=== PATIENT | female | born 1950 | race Caucasian/White ===

== ENCOUNTER 2018-04-17 16:25 | Emergency (ER) | payer MEDICARE, OTHER ==
[~2018-04-17] VITALS: Ht 175.3 cm; Wt 76.2 kg
[2018-04-17 16:40] VITALS: BP 150/95
--- NOTE | 2018-04-17 17:12 | PHYS DOC ---
Past History Past Medical History: Asthma, Hypertension, Other Past Surgical History: Appendectomy, Other Alcohol Use: None Drug Use: None Adult General Chief Complaint Chief Complaint: LACERATION/AVULSION HPI HPI Patient is a 68 year old right-handed female who presents with obtaining of laceration of left index finger at 9 AM with continuing bleeding. Patient state she went to a medical office and was told that she had exposed tendon and needs to come to ER. Patient denies focal neuro deficit and change of movement of her fingers. Patient is not up-to-date with tetanus immunization. Review of Systems Review of Systems Constitutional: Denies fever or chills [] Eyes: Denies change in visual acuity, redness, or eye pain [] HENT: Denies nasal congestion or sore throat [] Respiratory: Denies cough or shortness of breath [] Cardiovascular: No additional information not addressed in HPI [] GI: Denies abdominal pain, nausea, vomiting, bloody stools or diarrhea [] : Denies dysuria or hematuria [] Musculoskeletal: Denies back pain or joint pain [] Integument: Denies rash or skin lesions [] Neurologic: Denies headache, focal weakness or sensory changes [] Endocrine: Denies polyuria or polydipsia [] All other systems were reviewed and found to be within normal limits, except as documented in this note. Allergies Allergies Allergies Coded Allergies Type Severity Reaction Last Updated Verified Penicillins Allergy Intermediate 04/17/18 Yes Sulfa (Sulfonamide Antibiotics) Allergy Intermediate 04/17/18 Yes azithromycin Allergy Intermediate 04/17/18 Yes cephalexin Allergy Intermediate 04/17/18 Yes Physical Exam Physical Exam Constitutional: Well developed, well nourished, mild distress, non-toxic appearance. [] HENT: Normocephalic, atraumatic. Eyes: PERRLA, EOMI, conjunctiva normal, no discharge. [] Neck: Normal range of motion, no tenderness, supple, no stridor. [] Cardiovascular:Heart rate regular rhythm, no murmur [] Lungs & Thorax: Bilateral breath sounds clear to auscultation [] Skin: Warm, dry, no erythema, no rash. [] Back: No tenderness, no CVA tenderness. [] Extremities: Flap laceration on proximal PIP dorsal side of left index finger with marked bleeding without tendon injury, No tenderness, no cyanosis, no clubbing, ROM intact, no edema. [] Neurologic: Alert and oriented X 3, no focal deficits noted. [] Psychologic: Affect normal, judgement normal, mood normal. [] Current Patient Data Vital Signs Vital Signs Date Time Temp Pulse Resp B/P (MAP) Pulse Ox O2 Delivery O2 Flow Rate FiO2 04/17/18 16:40 97.9 77 22 99 Room Air EKG EKG [] Radiology/Procedures Radiology/Procedures [] Course & Med Decision Making Course & Med Decision Making Evaluation of patient in ER showed 68-year-old female patient presented with laceration of left index finger that was repaired with Dermabond. Patient did not have sign of tendon injury. Finger splint with aluminium foam was applied. Dragon Disclaimer Signature Disclaimer This electronic medical record was generated, in whole or in part, using a voice recognition dictation system. Departure Departure: Impression: Primary Impression: Laceration of left index finger Disposition: HOME, SELF-CARE (at 1711) Condition: IMPROVED Patient Instructions: Fingertip Laceration, Tissue Adhesive Wound Care Additional Instructions: Keep wound clean and dry Laceration Repair Lac Repair Indication: Left index finger Procedure: The patient was placed in the appropriate position. Laceration of index finger was appeared with Dermabond and Steri-Strip. Splint was applied. Total repaired wound length: 1 cm Other Items: [OTHER ITEMS] The patient tolerated the procedure well Complications: None. Problem Qualifiers Primary Impression: Laceration of left index finger Encounter type: initial encounter Damage to nail status: without damage Foreign body presence: without foreign body Qualified Codes: S61.211A - Laceration without foreign body of left index finger without damage to nail, initial encounter PRASANNA CESAR MD Apr 17, 2018 17:12
[2018-04-17] MEDS ORDERED: DIPHTH,PERTUSS(ACELL),TET TOX 0.5 ML DISP.SYRIN. VAX IM ONE ×2 (17:13→17:30)
== END 2018-04-17 17:25 | disposition home or self-care (01) ==
LOC: ER 16:25
DX: S61.211A Laceration without foreign body of left index finger without damage to nail, initial encounter (principal); J45.909 Unspecified asthma, uncomplicated; I10 Essential (primary) hypertension; Z88.0 Allergy status to penicillin; Z88.2 Allergy status to sulfonamides; Z88.1 Allergy status to other antibiotic agents; X58.XXXA Exposure to other specified factors, initial encounter; Y93.89 Activity, other specified; Y92.89 Other specified places as the place of occurrence of the external cause; Y99.8 Other external cause status
CPT/HCPCS: 12001; 90471; 90715; 99283